=== PATIENT | female | born 1965 | race African-American/Black ===

== ENCOUNTER 2018-02-16 05:33 | Inpatient (IN) | payer OTHER ==
[2018-02-16 06:58] LABS: INR 0.87; PROTIME 11.9 Sec (11.9-14.9); PT RATIO 0.9
[2018-02-16] MEDS ORDERED: SUCCINYLCHOLINE CHLORIDE 100 MG/5 ML SYG IV (07:09)
[2018-02-16] MEDS ORDERED: NEOSTIGMINE 3 MG/3 ML SYRINGE ×2 (07:09→11:30)
[2018-02-16] MEDS ORDERED: ROCURONIUM 50 MG INJ ×2 (07:09→08:54)
[2018-02-16] MEDS ORDERED: GLYCOPYRROLATE 0.4 MG INJ ×2 (07:09→11:30)
[2018-02-16] MEDS ORDERED: PROPOFOL 20 ML (07:09)
[2018-02-16] MEDS ORDERED: LIDOCAINE 2% (SDV) 5 ML INJ (07:09)
[2018-02-16] MEDS ORDERED: ROPIVACAINE 0.5 % 30 ML VIAL (07:12)
[2018-02-16] MEDS ORDERED: CLINDAMYCIN 900 MG/D5W (PMX) 50 ML IVPB (07:45)
[2018-02-16] MEDS ORDERED: HYDROCORTISONE 100 MG INJ (07:55)
[2018-02-16] MEDS ORDERED: EPHEDrine SULFATE 50 MG/5 ML SYG (08:01)
[2018-02-16] MEDS: GELATIN SIZE 100 SPONGE (08:15)
[2018-02-16] MEDS: ROPIVACAINE 0.5 % 30 ML VIAL (08:23)
[2018-02-16] MEDS: POLYMYXIN/BACITRACIN 1L IRRIG (08:23)
[2018-02-16] MEDS: THROMBIN 5000 UNIT VIAL (08:23)
[2018-02-16] MEDS ORDERED: POVIDONE IODINE 10% 28.4 GM OINT (11:10)
[2018-02-16] MEDS ORDERED: ONDANSETRON 4 MG INJ (11:28)
[2018-02-16] MEDS ORDERED: METOCLOPRAMIDE 10 MG INJ (11:29)
[2018-02-16] MEDS ORDERED: DIPHENHYDRAMINE 50 MG INJ IV (12:30)
[2018-02-16] MEDS ORDERED: DIPHENHYDRAMINE 25 MG CAP PO (12:30)
[2018-02-16] MEDS ORDERED: FENTAnyl 50 MCG/ML VIAL IV ×3 (12:30)
[2018-02-16] MEDS ORDERED: MEPERIDINE 25 MG INJ IV (12:30)
[2018-02-16] MEDS ORDERED: BISACODYL 10 MG SUPP PR (12:30)
[2018-02-16] MEDS ORDERED: MIDAZOLAM 1 MG/ML 2 ML INJ IV (12:30)
[2018-02-16] MEDS ORDERED: hydrALAzine 20 MG INJ IV (12:30)
[2018-02-16] MEDS ORDERED: OXYCODONE/ACETAMINOPHEN (5/325) TAB PO ×3 (12:30)
[2018-02-16] MEDS ORDERED: EPHEDrine SULFATE 50 MG/5 ML SYG IV (12:30)
[2018-02-16] MEDS ORDERED: HYDROmorphONE 1 MG/5 ML IV SYRINGE IV ×3 (12:30)
[2018-02-16] MEDS ORDERED: METOCLOPRAMIDE 10 MG INJ IV (12:30)
[2018-02-16] MEDS ORDERED: LABETALOL HCL 20MG INJ IV (12:30)
[2018-02-16] MEDS: HYDROmorphONE 0.2 MG/ML PCA IV (12:43)
[2018-02-16] MEDS: ONDANSETRON 4 MG INJ IV (12:53)
[2018-02-16] MEDS: SOD CHLORIDE 0.9% 1,000 ML IV ×2 (12:59→21:10)
[2018-02-16] MEDS: CHOLECALCIFEROL 1,000 UNIT TAB PO (13:15)
[2018-02-16] MEDS: AMLODIPINE 10 MG TAB PO (13:30)
[2018-02-16] MEDS: LISINOPRIL 20 MG TAB PO (13:30)
[2018-02-16] MEDS: CLINDAMYCIN 900 MG/D5W (PMX) 50 ML IVPB (17:49)
[2018-02-16] MEDS: SENNA/DOCUSATE NA (8.6MG/50MG) TAB PO (21:10)
[2018-02-17] MEDS: CLINDAMYCIN 900 MG/D5W (PMX) 50 ML IVPB ×4 (00:14→17:38)
[2018-02-17] MEDS: ONDANSETRON 4 MG INJ IV (00:14)
[2018-02-17] MEDS: morphine 10 MG INJ IV (00:14)
[2018-02-17 05:13] LABS: ADD MAN DIFF? NO
[2018-02-17 05:16] LABS: WHITE BLOOD COUNT 10.2 10^3/ul (4.8-10.8)
[2018-02-17 05:17] LABS: ABNORMAL IP MESSAGE 1; BASOPHILS % 0.3 % (0.0-2.0); EOSINOPHILS % 0.1 % (0.0-7.0); HEMOGLOBIN 11.6 g/dl (12.0-16.0); LYMPHOCYTES # 1.8 10^3/ul (0.8-2.9); LYMPHOCYTES % 17.5 % (15.0-51.0); MEAN CORPUSCULAR HEMOGLOBIN 27.1 pg (29.0-33.0); MEAN CORPUSCULAR HGB CONC 30.5 g/dl (32.0-37.0); MEAN CORPUSCULAR VOLUME 88.8 fl (82.0-101.0); MEAN PLATELET VOLUME 10.8 fl (7.4-10.4); MONOCYTE # 1.7 10^3/ul (0.3-0.9); MONOCYTES % 16.7 % (0.0-11.0); NEUTROPHIL # 6.7 10^3/ul (1.6-7.5); NEUTROPHILS % 64.9 % (39.0-77.0); PLATELET COUNT 254 10^3/UL (140-415); RED BLOOD COUNT 4.28 10^6/ul (4.20-5.40); RED CELL DISTRIBUTION WIDTH 14.8 % (11.5-14.5)
[2018-02-17 05:48] LABS: ANION GAP 9 (8-16); BLOOD UREA NITROGEN 6 mg/dl (7-20); CALCIUM 8.8 mg/dl (8.4-10.2); CARBON DIOXIDE 28 mmol/L (21-31); CHLORIDE 110 mmol/L (97-110); CREATININE 0.87 mg/dl (0.44-1.00); GLUCOSE 99 mg/dl (70-220); MAGNESIUM 1.9 mg/dl (1.7-2.5); PHOSPHORUS 4.2 mg/dl (2.5-4.9); POTASSIUM 3.8 mmol/L (3.5-5.1); SODIUM 143 mmol/L (135-144)
[2018-02-17 06:09] LABS: POSITIVE DIFF @See below
[2018-02-17] MEDS: predniSONE 1 MG TAB PO (08:36)
[2018-02-17] MEDS: CHOLECALCIFEROL 1,000 UNIT TAB PO (08:37)
[2018-02-17] MEDS: LISINOPRIL 20 MG TAB PO (08:40)
[2018-02-17] MEDS: AMLODIPINE 10 MG TAB PO (08:40)
[2018-02-17] MEDS: OXYCODONE/ACETAMINOPHEN (5/325) TAB PO ×4 (09:01→22:18)
[2018-02-17 12:45] LABS: ADD UMIC NO; UR ASCORBIC ACID NEGATIVE (NEGATIVE); UR BILIRUBIN (Dip) NEGATIVE (NEGATIVE); UR BLOOD (Dip) NEGATIVE (NEGATIVE); UR CLARITY CLEAR (CLEAR); UR COLOR YELLOW (YELLOW); UR GLUCOSE (Dip) NEGATIVE (NEGATIVE); UR KETONES (Dip) NEGATIVE (NEGATIVE); UR LEUKOCYTE ESTERASE (Dip) NEGATIVE Leu/ul (NEGATIVE); UR NITRITE (Dip) NEGATIVE (NEGATIVE); UR SPECIFIC GRAVITY (Dip) 1.012 (1.003-1.030); UR TOTAL PROTEIN (Dip) NEGATIVE (NEGATIVE); UR UROBILINOGEN (Dip) NEGATIVE (NEGATIVE)
[2018-02-17] MEDS ORDERED: ONDANSETRON 4 MG INJ IV (13:30)
[2018-02-17] MEDS: DIAZEPAM 5 MG TAB PO ×2 (16:11→22:18)
[2018-02-17] MEDS ORDERED: ACETAMINOPHEN 325 MG TAB PO (17:00)
[2018-02-17] MEDS ORDERED: RIVAROXABAN 10 MG TABLET PO (17:55)
[2018-02-17] MEDS: LACTOBACILLUS RHAMNOSUS CAP PO (21:10)
[2018-02-17] MEDS ORDERED: VITAMIN A & D 5 GM OINT PACKET TOP (22:24)
[2018-02-18] MEDS: CLINDAMYCIN 900 MG/D5W (PMX) 50 ML IVPB (00:36)
[2018-02-18] MEDS: OXYCODONE/ACETAMINOPHEN (5/325) TAB PO ×5 (02:40→22:31)
[2018-02-18 05:13] LABS: ADD MAN DIFF? NO
[2018-02-18 05:14] LABS: WHITE BLOOD COUNT 11.6 10^3/ul (4.8-10.8)
[2018-02-18 05:14] LABS: ABNORMAL IP MESSAGE 1; BASOPHILS % 0.3 % (0.0-2.0); EOSINOPHILS # 0.1 10^3/ul (0.0-0.5); EOSINOPHILS % 0.9 % (0.0-7.0); HEMATOCRIT 32.8 % (37.0-47.0); HEMOGLOBIN 10.1 g/dl (12.0-16.0); LYMPHOCYTES # 1.5 10^3/ul (0.8-2.9); LYMPHOCYTES % 13.1 % (15.0-51.0); MEAN CORPUSCULAR HEMOGLOBIN 27.6 pg (29.0-33.0); MEAN CORPUSCULAR HGB CONC 30.8 g/dl (32.0-37.0); MEAN CORPUSCULAR VOLUME 89.6 fl (82.0-101.0); MONOCYTE # 1.8 10^3/ul (0.3-0.9); MONOCYTES % 15.1 % (0.0-11.0); NEUTROPHIL # 8.2 10^3/ul (1.6-7.5); NEUTROPHILS % 70.2 % (39.0-77.0); PLATELET COUNT 218 10^3/UL (140-415); RED BLOOD COUNT 3.66 10^6/ul (4.20-5.40); RED CELL DISTRIBUTION WIDTH 14.9 % (11.5-14.5)
[2018-02-18 05:16] LABS: POSITIVE DIFF @See below
[2018-02-18 06:01] LABS: ANION GAP 8 (8-16); BLOOD UREA NITROGEN 7 mg/dl (7-20); CALCIUM 8.6 mg/dl (8.4-10.2); CARBON DIOXIDE 28 mmol/L (21-31); CHLORIDE 109 mmol/L (97-110); CREATININE 0.91 mg/dl (0.44-1.00); GLUCOSE 96 mg/dl (70-220); MAGNESIUM 1.9 mg/dl (1.7-2.5); PHOSPHORUS 3.9 mg/dl (2.5-4.9); POTASSIUM 3.9 mmol/L (3.5-5.1); SODIUM 141 mmol/L (135-144)
[2018-02-18] MEDS: PANTOPRAZOLE (EC) 40 MG TAB PO (07:14)
[2018-02-18] MEDS: DIAZEPAM 5 MG TAB PO (07:44)
[2018-02-18] MEDS: LACTOBACILLUS RHAMNOSUS CAP PO ×2 (09:03→21:11)
[2018-02-18] MEDS: predniSONE 1 MG TAB PO (09:03)
[2018-02-18] MEDS: CHOLECALCIFEROL 1,000 UNIT TAB PO (09:03)
[2018-02-18] MEDS: LISINOPRIL 20 MG TAB PO (09:04)
[2018-02-18] MEDS ORDERED: MAGNESIUM HYDROXIDE 30ML CUP PO (21:00)
[2018-02-18] MEDS: AMLODIPINE 10 MG TAB PO (21:12)
[2018-02-18] MEDS: AL HYDROX/MG HYDROX/SIMETH 30 ML CUP PO (21:55)
== END 2018-02-18 23:25 | DRG 505 ==
LOC: SDS 05:33 → REC 12:18 → MS1 14:06
PROC: 0SGH07Z Fusion of Right Tarsal Joint with Autologous Tissue Substitute, Open Approach (ICD-10-PCS; principal; 2018-02-16 07:00)
PROC: 0QB20ZZ Excision of Right Pelvic Bone, Open Approach (ICD-10-PCS; 2018-02-16 07:00)
DX: M19.071 Primary osteoarthritis, right ankle and foot (principal); M06.9 Rheumatoid arthritis, unspecified; I10 Essential (primary) hypertension
CPT/HCPCS: 71045; 73610-RT; 80048; 81003; 83735; 84100; 85025; 85610; 85730; 87040; 87086; 97110; 97163; 97167; 97530

== ENCOUNTER 2018-02-19 00:14 | Inpatient (IN) | payer OTHER ==
[2018-02-19] MEDS ORDERED: DIAZEPAM 2 MG TAB PO (01:00)
[2018-02-19 03:41] LABS: ADD UMIC NO; UR ASCORBIC ACID NEGATIVE (NEGATIVE); UR BILIRUBIN (Dip) NEGATIVE (NEGATIVE); UR BLOOD (Dip) NEGATIVE (NEGATIVE); UR CLARITY CLEAR (CLEAR); UR COLOR STRAW (YELLOW); UR GLUCOSE (Dip) NEGATIVE (NEGATIVE); UR KETONES (Dip) NEGATIVE (NEGATIVE); UR LEUKOCYTE ESTERASE (Dip) NEGATIVE Leu/ul (NEGATIVE); UR NITRITE (Dip) NEGATIVE (NEGATIVE); UR SPECIFIC GRAVITY (Dip) 1.005 (1.003-1.030); UR TOTAL PROTEIN (Dip) NEGATIVE (NEGATIVE); UR UROBILINOGEN (Dip) NEGATIVE (NEGATIVE)
[2018-02-19] MEDS: PANTOPRAZOLE (EC) 40 MG TAB PO (06:31)
[2018-02-19] MEDS: OXYCODONE/ACETAMINOPHEN (5/325) TAB PO (06:56)
[2018-02-19 07:03] LABS: ADD MAN DIFF? NO
[2018-02-19 07:13] LABS: WHITE BLOOD COUNT 10.2 10^3/ul (4.8-10.8)
[2018-02-19 07:13] LABS: ABNORMAL IP MESSAGE 1; BASOPHIL # 0.1 10^3/ul (0.0-0.1); BASOPHILS % 0.5 % (0.0-2.0); EOSINOPHILS # 0.1 10^3/ul (0.0-0.5); EOSINOPHILS % 1.4 % (0.0-7.0); HEMATOCRIT 33.4 % (37.0-47.0); HEMOGLOBIN 10.4 g/dl (12.0-16.0); LYMPHOCYTES % 19.2 % (15.0-51.0); MEAN CORPUSCULAR HEMOGLOBIN 27.4 pg (29.0-33.0); MEAN CORPUSCULAR HGB CONC 31.1 g/dl (32.0-37.0); MEAN CORPUSCULAR VOLUME 87.9 fl (82.0-101.0); MEAN PLATELET VOLUME 11.1 fl (7.4-10.4); MONOCYTE # 1.6 10^3/ul (0.3-0.9); NEUTROPHIL # 6.4 10^3/ul (1.6-7.5); NEUTROPHILS % 62.4 % (39.0-77.0); PLATELET COUNT 225 10^3/UL (140-415); RED CELL DISTRIBUTION WIDTH 14.9 % (11.5-14.5)
[2018-02-19 07:18] LABS: POSITIVE DIFF @See below
[2018-02-19 07:42] LABS: ALANINE AMINOTRANSFERASE 25 IU/L (13-69); ALBUMIN 3.6 g/dl (3.3-4.9); ALBUMIN/GLOBULIN RATIO 1.05; ALKALINE PHOSPHATASE 80 IU/L (42-121); ANION GAP 10 (8-16); ASPARTATE AMINO TRANSFERASE 24 IU/L (15-46); BILIRUBIN,INDIRECT 0.6 mg/dl (0-1.1); BILIRUBIN,TOTAL 0.6 mg/dl (0.2-1.3); BLOOD UREA NITROGEN 5 mg/dl (7-20); CALCIUM 8.9 mg/dl (8.4-10.2); CARBON DIOXIDE 28 mmol/L (21-31); CHLORIDE 107 mmol/L (97-110); CREATININE 0.93 mg/dl (0.44-1.00); GLUCOSE 84 mg/dl (70-220); SODIUM 141 mmol/L (135-144)
[2018-02-19] MEDS: DOCUSATE SODIUM 100 MG CAP PO ×2 (08:35→20:28)
[2018-02-19] MEDS: CHOLECALCIFEROL 1,000 UNIT TAB PO (08:35)
[2018-02-19] MEDS: LISINOPRIL 20 MG TAB PO (08:35)
[2018-02-19] MEDS: LACTULOSE 30ML CUP PO (08:35)
[2018-02-19] MEDS: ONDANSETRON 4 MG INJ IV (08:55)
[2018-02-19] MEDS: LACTOBACILLUS RHAMNOSUS CAP PO ×2 (08:55→20:28)
[2018-02-19] MEDS: predniSONE 1 MG TAB PO (08:55)
[2018-02-19] MEDS: MAGNESIUM HYDROXIDE 30ML CUP PO (17:47)
[2018-02-19] MEDS: CALCIUM CARBONATE 500 MG CHEW TAB PO (17:48)
[2018-02-19] MEDS: ACETAMINOPHEN 325 MG TAB PO (17:48)
[2018-02-19] MEDS: SENNA TAB PO (20:28)
[2018-02-19] MEDS: AMLODIPINE 10 MG TAB PO (20:28)
[2018-02-20] MEDS: PANTOPRAZOLE (EC) 40 MG TAB PO ×2 (06:28→16:39)
[2018-02-20] MEDS: ONDANSETRON 4 MG INJ IV ×2 (07:16→19:39)
[2018-02-20] MEDS ORDERED: CALCIUM CARBONATE 750 MG CHEW TAB PO (08:00)
[2018-02-20] MEDS: DOCUSATE SODIUM 100 MG CAP PO ×2 (08:08→20:25)
[2018-02-20] MEDS: ACETAMINOPHEN 325 MG TAB PO ×2 (08:08→22:33)
[2018-02-20] MEDS: LACTOBACILLUS RHAMNOSUS CAP PO ×2 (08:08→20:25)
[2018-02-20] MEDS: CHOLECALCIFEROL 1,000 UNIT TAB PO (08:08)
[2018-02-20] MEDS: LISINOPRIL 20 MG TAB PO (08:08)
[2018-02-20] MEDS: LACTULOSE 30ML CUP PO (09:00)
[2018-02-20] MEDS: predniSONE 1 MG TAB PO (09:25)
[2018-02-20 12:57] LABS: ADD UMIC NO; UR ASCORBIC ACID NEGATIVE (NEGATIVE); UR BILIRUBIN (Dip) NEGATIVE (NEGATIVE); UR BLOOD (Dip) NEGATIVE (NEGATIVE); UR CLARITY CLEAR (CLEAR); UR COLOR STRAW (YELLOW); UR GLUCOSE (Dip) NEGATIVE (NEGATIVE); UR KETONES (Dip) NEGATIVE (NEGATIVE); UR LEUKOCYTE ESTERASE (Dip) NEGATIVE Leu/ul (NEGATIVE); UR NITRITE (Dip) NEGATIVE (NEGATIVE); UR SPECIFIC GRAVITY (Dip) 1.003 (1.003-1.030); UR TOTAL PROTEIN (Dip) NEGATIVE (NEGATIVE); UR UROBILINOGEN (Dip) NEGATIVE (NEGATIVE)
[2018-02-20] MEDS: OXYCODONE/ACETAMINOPHEN (5/325) TAB PO (16:40)
[2018-02-20] MEDS: SENNA TAB PO (20:24)
[2018-02-20] MEDS: AMLODIPINE 10 MG TAB PO (21:00)
[2018-02-21] MEDS ORDERED: traMADol 50 MG TAB PO
[2018-02-21] MEDS: PANTOPRAZOLE (EC) 40 MG TAB PO ×2 (06:09→15:52)
[2018-02-21 07:20] LABS: ADD MAN DIFF? NO
[2018-02-21 07:28] LABS: WHITE BLOOD COUNT 7.2 10^3/ul (4.8-10.8)
[2018-02-21 07:28] LABS: ABNORMAL IP MESSAGE 1; BASOPHILS % 0.6 % (0.0-2.0); EOSINOPHILS # 0.3 10^3/ul (0.0-0.5); HEMATOCRIT 33.7 % (37.0-47.0); HEMOGLOBIN 10.7 g/dl (12.0-16.0); LYMPHOCYTES # 1.7 10^3/ul (0.8-2.9); MEAN CORPUSCULAR HEMOGLOBIN 27.6 pg (29.0-33.0); MEAN CORPUSCULAR HGB CONC 31.8 g/dl (32.0-37.0); MEAN CORPUSCULAR VOLUME 87.1 fl (82.0-101.0); MEAN PLATELET VOLUME 10.6 fl (7.4-10.4); MONOCYTE # 1.7 10^3/ul (0.3-0.9); MONOCYTES % 23.5 % (0.0-11.0); NEUTROPHIL # 3.4 10^3/ul (1.6-7.5); NEUTROPHILS % 47.1 % (39.0-77.0); PLATELET COUNT 261 10^3/UL (140-415); RED BLOOD COUNT 3.87 10^6/ul (4.20-5.40); RED CELL DISTRIBUTION WIDTH 14.5 % (11.5-14.5)
[2018-02-21 07:29] LABS: POSITIVE DIFF @See below
[2018-02-21 07:55] LABS: ALANINE AMINOTRANSFERASE 30 IU/L (13-69); ALBUMIN 3.4 g/dl (3.3-4.9); ALBUMIN/GLOBULIN RATIO 0.97; ALKALINE PHOSPHATASE 81 IU/L (42-121); ANION GAP 11 (8-16); ASPARTATE AMINO TRANSFERASE 25 IU/L (15-46); BILIRUBIN,INDIRECT 0.5 mg/dl (0-1.1); BILIRUBIN,TOTAL 0.5 mg/dl (0.2-1.3); BLOOD UREA NITROGEN 5 mg/dl (7-20); CALCIUM 9.1 mg/dl (8.4-10.2); CARBON DIOXIDE 28 mmol/L (21-31); CHLORIDE 106 mmol/L (97-110); CREATININE 0.95 mg/dl (0.44-1.00); GLUCOSE 89 mg/dl (70-220); SODIUM 141 mmol/L (135-144); TOTAL PROTEIN 6.9 g/dl (6.1-8.1)
[2018-02-21 08:09] LABS: MAGNESIUM 2.1 mg/dl (1.7-2.5)
[2018-02-21 08:09] LABS: PHOSPHORUS 5.2 mg/dl (2.5-4.9)
[2018-02-21] MEDS: LISINOPRIL 20 MG TAB PO (09:00)
[2018-02-21 09:49] LABS: ANISOCYTOSIS 1+ (0-0); BAND NEUTROPHILS #M 0.3 10^3/ul (0.0-0.6); BAND NEUTROPHILS % (M) 5 % (0-4); EOSINOPHILS % (M) 3 % (0-7); GIANT THROMBO% (M) 2 % (0-0); LYMPHOCYTES % (M) 29 % (15-51); MICROCYTOSIS 1+ (0-0); MONOCYTE #M 1.2 10^3/ul (0.3-0.9); MONOCYTES % (M) 18 % (0-11); MYELOCYTES #M 0.1 10^3/ul (0.0-0.0); MYELOCYTES % (M) 2 % (0-0); PLATELET ESTIMATE NORMAL; POIKILOCYTOSIS 1+ (0-0); POLYCHROMASIA 3+ (0-0); REACTIVE LYMPHOCYTES% (M) 1 % (0-0); SEGMENTED NEUTROPHILS (M) % 42 % (39-77); SMUDGE%M 4 % (0-0)
[2018-02-21] MEDS: LACTOBACILLUS RHAMNOSUS CAP PO ×2 (10:57→20:54)
[2018-02-21] MEDS: DOCUSATE SODIUM 100 MG CAP PO ×2 (10:58→20:54)
[2018-02-21] MEDS: predniSONE 1 MG TAB PO (10:58)
[2018-02-21] MEDS: CHOLECALCIFEROL 1,000 UNIT TAB PO (10:58)
[2018-02-21] MEDS: ACETAMINOPHEN 325 MG TAB PO (14:46)
[2018-02-21] MEDS: SENNA TAB PO (20:54)
[2018-02-21] MEDS: AMLODIPINE 10 MG TAB PO (20:55)
[2018-02-22] MEDS: ACETAMINOPHEN 325 MG TAB PO (02:08)
[2018-02-22] MEDS: ONDANSETRON 4 MG INJ IV (04:28)
[2018-02-22] MEDS: PANTOPRAZOLE (EC) 40 MG TAB PO ×2 (06:46→16:35)
[2018-02-22] MEDS: DOCUSATE SODIUM 100 MG CAP PO ×2 (08:10→20:31)
[2018-02-22] MEDS: predniSONE 1 MG TAB PO (08:11)
[2018-02-22] MEDS: LACTOBACILLUS RHAMNOSUS CAP PO ×2 (08:11→20:31)
[2018-02-22] MEDS: CHOLECALCIFEROL 1,000 UNIT TAB PO (08:11)
[2018-02-22] MEDS: LISINOPRIL 20 MG TAB PO (08:16)
[2018-02-22] MEDS: AMLODIPINE 10 MG TAB PO (20:31)
[2018-02-22] MEDS: SENNA TAB PO (20:31)
[2018-02-23] MEDS: PANTOPRAZOLE (EC) 40 MG TAB PO ×2 (05:55→16:30)
[2018-02-23] MEDS: ACETAMINOPHEN 325 MG TAB PO (08:47)
[2018-02-23] MEDS: predniSONE 1 MG TAB PO (08:47)
[2018-02-23] MEDS: DOCUSATE SODIUM 100 MG CAP PO ×2 (08:47→21:00)
[2018-02-23] MEDS: LACTOBACILLUS RHAMNOSUS CAP PO ×2 (08:47→20:39)
[2018-02-23] MEDS: CHOLECALCIFEROL 1,000 UNIT TAB PO (08:47)
[2018-02-23] MEDS: LISINOPRIL 20 MG TAB PO (08:48)
[2018-02-23] MEDS ORDERED: ONDANSETRON (ODT) 4 MG TAB ODT (11:30)
[2018-02-23] MEDS: OXYCODONE/ACETAMINOPHEN (5/325) TAB PO (16:31)
[2018-02-23] MEDS: AMLODIPINE 10 MG TAB PO (20:41)
[2018-02-23] MEDS: SENNA TAB PO (21:00)
[2018-02-24] MEDS: PANTOPRAZOLE (EC) 40 MG TAB PO ×2 (06:06→16:26)
[2018-02-24 07:17] LABS: ADD MAN DIFF? NO
[2018-02-24 07:27] LABS: WHITE BLOOD COUNT 9.4 10^3/ul (4.8-10.8)
[2018-02-24 07:27] LABS: ABNORMAL IP MESSAGE 1; BASOPHIL # 0.1 10^3/ul (0.0-0.1); BASOPHILS % 0.6 % (0.0-2.0); EOSINOPHILS # 0.3 10^3/ul (0.0-0.5); HEMOGLOBIN 10.3 g/dl (12.0-16.0); LYMPHOCYTES # 2.7 10^3/ul (0.8-2.9); LYMPHOCYTES % 28.3 % (15.0-51.0); MEAN CORPUSCULAR HGB CONC 31.2 g/dl (32.0-37.0); MEAN CORPUSCULAR VOLUME 86.6 fl (82.0-101.0); MEAN PLATELET VOLUME 10.2 fl (7.4-10.4); MONOCYTE # 1.6 10^3/ul (0.3-0.9); MONOCYTES % 16.5 % (0.0-11.0); NEUTROPHIL # 4.7 10^3/ul (1.6-7.5); NEUTROPHILS % 50.2 % (39.0-77.0); PLATELET COUNT 320 10^3/UL (140-415); RED BLOOD COUNT 3.81 10^6/ul (4.20-5.40); RED CELL DISTRIBUTION WIDTH 14.2 % (11.5-14.5)
[2018-02-24 07:42] LABS: ANION GAP 15 (8-16); BLOOD UREA NITROGEN 11 mg/dl (7-20); CARBON DIOXIDE 28 mmol/L (21-31); CHLORIDE 103 mmol/L (97-110); CREATININE 0.84 mg/dl (0.44-1.00); GLUCOSE 85 mg/dl (70-220); MAGNESIUM 2.2 mg/dl (1.7-2.5); PHOSPHORUS 4.8 mg/dl (2.5-4.9); POTASSIUM 3.8 mmol/L (3.5-5.1); SODIUM 142 mmol/L (135-144)
[2018-02-24] MEDS: DOCUSATE SODIUM 100 MG CAP PO ×2 (09:00→21:00)
[2018-02-24] MEDS ORDERED: AMLODIPINE 10 MG TAB PO (09:00)
[2018-02-24] MEDS: LISINOPRIL 20 MG TAB PO (09:00)
[2018-02-24] MEDS: LACTOBACILLUS RHAMNOSUS CAP PO ×2 (09:12→21:17)
[2018-02-24] MEDS: CHOLECALCIFEROL 1,000 UNIT TAB PO (09:12)
[2018-02-24] MEDS: OXYCODONE/ACETAMINOPHEN (5/325) TAB PO (09:12)
[2018-02-24] MEDS: predniSONE 1 MG TAB PO (09:12)
[2018-02-24] MEDS: ACETAMINOPHEN 325 MG TAB PO (09:12)
[2018-02-24] MEDS: AMLODIPINE 5 MG TAB PO ×2 (10:00→21:00)
[2018-02-24] MEDS: SENNA TAB PO (21:00)
[2018-02-25] MEDS: PANTOPRAZOLE (EC) 40 MG TAB PO ×2 (06:25→17:47)
[2018-02-25] MEDS: LACTOBACILLUS RHAMNOSUS CAP PO ×2 (08:45→20:13)
[2018-02-25] MEDS: DOCUSATE SODIUM 100 MG CAP PO ×2 (08:45→20:14)
[2018-02-25] MEDS: ACETAMINOPHEN 325 MG TAB PO ×2 (08:45→21:28)
[2018-02-25] MEDS: CHOLECALCIFEROL 1,000 UNIT TAB PO (08:45)
[2018-02-25] MEDS: AMLODIPINE 5 MG TAB PO ×2 (08:48→20:14)
[2018-02-25] MEDS: LISINOPRIL 20 MG TAB PO (08:48)
[2018-02-25] MEDS: LIDOCAINE 5% PATCH TD (13:11)
[2018-02-25] MEDS: predniSONE 1 MG TAB PO (13:11)
[2018-02-25] MEDS: SENNA TAB PO (20:15)
[2018-02-26] MEDS: PANTOPRAZOLE (EC) 40 MG TAB PO ×2 (05:56→17:30)
[2018-02-26] MEDS: predniSONE 1 MG TAB PO (08:51)
[2018-02-26] MEDS: CHOLECALCIFEROL 1,000 UNIT TAB PO (08:51)
[2018-02-26] MEDS: DOCUSATE SODIUM 100 MG CAP PO ×2 (08:51→20:05)
[2018-02-26] MEDS: LIDOCAINE 5% PATCH TD (08:51)
[2018-02-26] MEDS: AMLODIPINE 5 MG TAB PO ×2 (08:52→21:00)
[2018-02-26] MEDS: LACTOBACILLUS RHAMNOSUS CAP PO ×2 (08:52→20:05)
[2018-02-26] MEDS: OXYCODONE/ACETAMINOPHEN (5/325) TAB PO (08:52)
[2018-02-26] MEDS: LISINOPRIL 20 MG TAB PO (08:53)
[2018-02-26] MEDS: SENNA TAB PO (20:05)
[2018-02-27] MEDS: PANTOPRAZOLE (EC) 40 MG TAB PO ×2 (06:14→17:21)
[2018-02-27 07:42] LABS: ADD MAN DIFF? NO
[2018-02-27 07:46] LABS: BASOPHIL # 0.1 10^3/ul (0.0-0.1); BASOPHILS % 0.7 % (0.0-2.0); EOSINOPHILS # 0.2 10^3/ul (0.0-0.5); EOSINOPHILS % 2.1 % (0.0-7.0); HEMATOCRIT 35.2 % (37.0-47.0); HEMOGLOBIN 10.9 g/dl (12.0-16.0); LYMPHOCYTES # 3.5 10^3/ul (0.8-2.9); LYMPHOCYTES % 35.7 % (15.0-51.0); MEAN CORPUSCULAR HEMOGLOBIN 26.8 pg (29.0-33.0); MEAN CORPUSCULAR VOLUME 86.7 fl (82.0-101.0); MEAN PLATELET VOLUME 9.8 fl (7.4-10.4); MONOCYTE # 1.1 10^3/ul (0.3-0.9); MONOCYTES % 11.4 % (0.0-11.0); NEUTROPHIL # 4.7 10^3/ul (1.6-7.5); NEUTROPHILS % 48.4 % (39.0-77.0); PLATELET COUNT 423 10^3/UL (140-415); RED BLOOD COUNT 4.06 10^6/ul (4.20-5.40)
[2018-02-27 07:46] LABS: WHITE BLOOD COUNT 9.8 10^3/ul (4.8-10.8)
[2018-02-27 08:08] LABS: IRON 44 ug/dl (35-150)
[2018-02-27 08:12] LABS: ANION GAP 15 (8-16); BLOOD UREA NITROGEN 11 mg/dl (7-20); CALCIUM 9.5 mg/dl (8.4-10.2); CARBON DIOXIDE 26 mmol/L (21-31); CHLORIDE 106 mmol/L (97-110); CREATININE 0.91 mg/dl (0.44-1.00); GLUCOSE 81 mg/dl (70-220); MAGNESIUM 2.1 mg/dl (1.7-2.5); PHOSPHORUS 4.7 mg/dl (2.5-4.9); POTASSIUM 3.7 mmol/L (3.5-5.1); SODIUM 143 mmol/L (135-144)
[2018-02-27 08:19] LABS: % IRON SATURATION 18 % SAT (22-52); TOTAL IRON BINDING CAPACITY 251 ug/dl (241-421)
[2018-02-27] MEDS: predniSONE 1 MG TAB PO ×2 (09:00→12:55)
[2018-02-27] MEDS: LIDOCAINE 5% PATCH TD (09:38)
[2018-02-27] MEDS: DOCUSATE SODIUM 100 MG CAP PO ×2 (09:38→20:26)
[2018-02-27] MEDS: LACTOBACILLUS RHAMNOSUS CAP PO ×2 (09:38→20:24)
[2018-02-27] MEDS: LISINOPRIL 20 MG TAB PO (09:38)
[2018-02-27] MEDS: CHOLECALCIFEROL 1,000 UNIT TAB PO (09:38)
[2018-02-27] MEDS: AMLODIPINE 5 MG TAB PO ×2 (09:38→20:26)
[2018-02-27] MEDS: ACETAMINOPHEN 325 MG TAB PO (09:39)
[2018-02-27] MEDS: SENNA TAB PO (20:26)
[2018-02-28] MEDS: PANTOPRAZOLE (EC) 40 MG TAB PO ×2 (06:22→17:27)
[2018-02-28] MEDS: DOCUSATE SODIUM 100 MG CAP PO ×2 (08:17→20:28)
[2018-02-28] MEDS: LISINOPRIL 20 MG TAB PO (08:18)
[2018-02-28] MEDS: LIDOCAINE 5% PATCH TD (08:19)
[2018-02-28] MEDS: predniSONE 1 MG TAB PO (08:20)
[2018-02-28] MEDS: LACTOBACILLUS RHAMNOSUS CAP PO ×2 (08:20→20:28)
[2018-02-28] MEDS: CHOLECALCIFEROL 1,000 UNIT TAB PO (08:20)
[2018-02-28] MEDS: RIVAROXABAN 10 MG TABLET PO (17:28)
[2018-02-28] MEDS: SENNA TAB PO (20:31)
[2018-02-28] MEDS: AMLODIPINE 5 MG TAB PO (20:31)
[2018-03-01] MEDS: PANTOPRAZOLE (EC) 40 MG TAB PO ×2 (06:04→16:17)
[2018-03-01] MEDS: DOCUSATE SODIUM 100 MG CAP PO ×2 (08:15→20:36)
[2018-03-01] MEDS: predniSONE 1 MG TAB PO (08:16)
[2018-03-01] MEDS: LACTOBACILLUS RHAMNOSUS CAP PO ×2 (08:16→20:33)
[2018-03-01] MEDS: CHOLECALCIFEROL 1,000 UNIT TAB PO (08:16)
[2018-03-01] MEDS: LISINOPRIL 20 MG TAB PO (08:17)
[2018-03-01] MEDS: LIDOCAINE 5% PATCH TD (08:17)
[2018-03-01] MEDS: RIVAROXABAN 10 MG TABLET PO (18:15)
[2018-03-01] MEDS: AMLODIPINE 5 MG TAB PO (20:34)
[2018-03-01] MEDS: SENNA TAB PO (20:37)
[2018-03-02] MEDS: PANTOPRAZOLE (EC) 40 MG TAB PO ×2 (05:33→16:42)
[2018-03-02] MEDS: OXYCODONE/ACETAMINOPHEN (5/325) TAB PO ×2 (08:23→16:43)
[2018-03-02] MEDS: LACTOBACILLUS RHAMNOSUS CAP PO ×2 (08:23→20:34)
[2018-03-02] MEDS: LIDOCAINE 5% PATCH TD ×2 (08:23→08:41)
[2018-03-02] MEDS: DOCUSATE SODIUM 100 MG CAP PO ×2 (08:23→20:35)
[2018-03-02] MEDS: FERROUS FUMARATE (SR) TAB PO (08:23)
[2018-03-02] MEDS: CHOLECALCIFEROL 1,000 UNIT TAB PO (08:23)
[2018-03-02] MEDS: LISINOPRIL 10 MG TAB PO (08:25)
[2018-03-02] MEDS: predniSONE 1 MG TAB PO (09:21)
[2018-03-02] MEDS: RIVAROXABAN 10 MG TABLET PO (16:43)
[2018-03-02] MEDS: AMLODIPINE 5 MG TAB PO (20:36)
[2018-03-02] MEDS: ACETAMINOPHEN 325 MG TAB PO (20:38)
[2018-03-02] MEDS: SENNA TAB PO (20:39)
[2018-03-03] MEDS: PANTOPRAZOLE (EC) 40 MG TAB PO ×2 (05:58→17:48)
[2018-03-03 06:22] LABS: ADD MAN DIFF? NO
[2018-03-03 06:28] LABS: WHITE BLOOD COUNT 8.6 10^3/ul (4.8-10.8)
[2018-03-03 06:28] LABS: BASOPHIL # 0.1 10^3/ul (0.0-0.1); BASOPHILS % 0.7 % (0.0-2.0); EOSINOPHILS # 0.2 10^3/ul (0.0-0.5); EOSINOPHILS % 2.6 % (0.0-7.0); HEMATOCRIT 33.6 % (37.0-47.0); HEMOGLOBIN 10.4 g/dl (12.0-16.0); LYMPHOCYTES # 3.1 10^3/ul (0.8-2.9); MEAN CORPUSCULAR HEMOGLOBIN 26.9 pg (29.0-33.0); MEAN CORPUSCULAR VOLUME 86.8 fl (82.0-101.0); MEAN PLATELET VOLUME 10.1 fl (7.4-10.4); MONOCYTE # 1.1 10^3/ul (0.3-0.9); MONOCYTES % 12.5 % (0.0-11.0); NEUTROPHILS % 46.4 % (39.0-77.0); PLATELET COUNT 435 10^3/UL (140-415); RED BLOOD COUNT 3.87 10^6/ul (4.20-5.40); RED CELL DISTRIBUTION WIDTH 14.2 % (11.5-14.5)
[2018-03-03 06:55] LABS: ANION GAP 12 (8-16); BLOOD UREA NITROGEN 10 mg/dl (7-20); CALCIUM 9.3 mg/dl (8.4-10.2); CARBON DIOXIDE 28 mmol/L (21-31); CHLORIDE 108 mmol/L (97-110); CREATININE 0.86 mg/dl (0.44-1.00); GLUCOSE 84 mg/dl (70-220); POTASSIUM 3.8 mmol/L (3.5-5.1); SODIUM 144 mmol/L (135-144)
[2018-03-03] MEDS: predniSONE 1 MG TAB PO (08:58)
[2018-03-03] MEDS: FERROUS FUMARATE (SR) TAB PO (08:58)
[2018-03-03] MEDS: DOCUSATE SODIUM 100 MG CAP PO ×2 (08:58→20:15)
[2018-03-03] MEDS: CHOLECALCIFEROL 1,000 UNIT TAB PO (08:58)
[2018-03-03] MEDS: LACTOBACILLUS RHAMNOSUS CAP PO ×2 (08:58→20:15)
[2018-03-03] MEDS: LISINOPRIL 10 MG TAB PO (08:59)
[2018-03-03] MEDS: ACETAMINOPHEN 325 MG TAB PO (09:58)
[2018-03-03] MEDS: RIVAROXABAN 10 MG TABLET PO (17:48)
[2018-03-03] MEDS: AMLODIPINE 5 MG TAB PO (20:15)
[2018-03-03] MEDS: SENNA TAB PO (20:16)
[2018-03-04] MEDS: PANTOPRAZOLE (EC) 40 MG TAB PO ×2 (06:03→17:39)
[2018-03-04] MEDS: LISINOPRIL 10 MG TAB PO (09:00)
[2018-03-04] MEDS: DOCUSATE SODIUM 100 MG CAP PO ×2 (09:00→20:16)
[2018-03-04] MEDS: CHOLECALCIFEROL 1,000 UNIT TAB PO (09:04)
[2018-03-04] MEDS: FERROUS FUMARATE (SR) TAB PO (09:05)
[2018-03-04] MEDS: LACTOBACILLUS RHAMNOSUS CAP PO ×2 (09:05→20:15)
[2018-03-04] MEDS: predniSONE 1 MG TAB PO (09:05)
[2018-03-04] MEDS: RIVAROXABAN 10 MG TABLET PO (17:39)
[2018-03-04] MEDS: AMLODIPINE 5 MG TAB PO (20:17)
[2018-03-04] MEDS: SENNA TAB PO (20:18)
[2018-03-05] MEDS: PANTOPRAZOLE (EC) 40 MG TAB PO (06:17)
[2018-03-05] MEDS: predniSONE 1 MG TAB PO (08:52)
[2018-03-05] MEDS: LACTOBACILLUS RHAMNOSUS CAP PO (08:53)
[2018-03-05] MEDS: CHOLECALCIFEROL 1,000 UNIT TAB PO (08:53)
[2018-03-05] MEDS: FERROUS FUMARATE (SR) TAB PO (08:53)
[2018-03-05] MEDS: DOCUSATE SODIUM 100 MG CAP PO (09:00)
[2018-03-05] MEDS: LISINOPRIL 10 MG TAB PO (09:00)
== END 2018-03-05 13:00 | disposition home health service (06) | DRG 547 ==
LOC: VRC 00:14
PROC: F07Z9FZ Gait Training/Functional Ambulation Treatment using Assistive, Adaptive, Supportive or Protective Equipment (ICD-10-PCS; principal; 2018-02-19)
PROC: F07Z8FZ Transfer Training Treatment using Assistive, Adaptive, Supportive or Protective Equipment (ICD-10-PCS; 2018-02-19)
PROC: F07Z5FZ Bed Mobility Treatment using Assistive, Adaptive, Supportive or Protective Equipment (ICD-10-PCS; 2018-02-19)
PROC: F08Z2FZ Grooming/Personal Hygiene Treatment using Assistive, Adaptive, Supportive or Protective Equipment (ICD-10-PCS; 2018-02-19)
PROC: F08Z0FZ Bathing/Showering Techniques Treatment using Assistive, Adaptive, Supportive or Protective Equipment (ICD-10-PCS; 2018-02-19)
PROC: F08Z1FZ Dressing Techniques Treatment using Assistive, Adaptive, Supportive or Protective Equipment (ICD-10-PCS; 2018-02-19)
DX: M06.9 Rheumatoid arthritis, unspecified (principal); Z98.1 Arthrodesis status; I10 Essential (primary) hypertension; M50.30 Other cervical disc degeneration, unspecified cervical region; M51.36 Other intervertebral disc degeneration, lumbar region; K59.00 Constipation, unspecified; R07.89 Other chest pain; F41.9 Anxiety disorder, unspecified; R11.0 Nausea; M19.012 Primary osteoarthritis, left shoulder; F43.9 Reaction to severe stress, unspecified; F06.31 Mood disorder due to known physiological condition with depressive features; D64.9 Anemia, unspecified; Z88.0 Allergy status to penicillin
CPT/HCPCS: 71045; 73560; 73600; 73620; 80048; 80053; 81003; 82728; 83540; 83735; 84100; 85025; 87040; 87081; 87086; 93005; 97110; 97112; 97150; 97163; 97167; 97530; 97535; 97542